=== PATIENT | female | born 1940 | race Caucasian/White ===

== ENCOUNTER → 2018-03-16 | Outpatient (CLI) | payer MEDICARE, OTHER ==
[~2018-03-16] MED LIST: HYDR25TA6 PO; LOSA25TA5 PO; METO25TA35 PO; PRAV20TA2 PO; RIVA20TA PO; Will bring list DOS
== END ==
LOC: CFH 08:53
PROVIDERS: ATTEND Family Medicine
DX: Z02.9 Encounter for administrative examinations, unspecified (principal)

== ENCOUNTER → 2018-03-23 | Outpatient (CLI) | payer MEDICARE ==
[~2018-03-23] MED LIST changes: +LIDOCAINE 1%-EPI 1:100K, 20ML ONE; +SODIUM BICARBONATE 4.2%, 5ML ONE
== END | disposition home or self-care (01) ==
LOC: CFH 07:40
PROVIDERS: ATTEND Family Medicine
DX: N63.11 Unspecified lump in the right breast, upper outer quadrant (principal)
CPT/HCPCS: 19083; 77065; 88305; J3490

== ENCOUNTER 2018-05-04 07:02 | Day surgery (SDC) | payer MEDICARE ==
[~2018-05-04] VITALS: Ht 172.7 cm; Wt 79.1 kg
[~2018-05-04 07:02] MED LIST changes: -LIDOCAINE 1%-EPI 1:100K, 20ML ONE; -SODIUM BICARBONATE 4.2%, 5ML ONE
[2018-05-04] MEDS ORDERED: LACTATED RINGERS 1,000 ML IV SCH (07:42)
[2018-05-04] MEDS ORDERED: ACETAMINOPHEN 500 MG TABLET PO ONE ×2 (08:00→08:30)
[2018-05-04] MEDS ORDERED: GABAPENTIN 300 MG CAPSULE PO ONE ×2 (08:00→08:30)
[2018-05-04] MEDS ORDERED: SCOPOLAMINE PATCH, 1.5MG PATCH.TD72 TD ONE ×2 (08:00→08:30)
[2018-05-04] MEDS ORDERED: ONDANSETRON 2MG/ML, 2ML IVPush ONE (08:00)
[2018-05-04] MEDS ORDERED: ONDANSETRON ODT 8 MG PO ONE (08:30)
[2018-05-04] MEDS ORDERED: OxyconTIN ER 10 MG TAB.ER PO ONE (08:30)
[2018-05-04] MEDS ORDERED: LIDOCAINE-MPF 1%, 2ML ONE (08:38)
[2018-05-04] MEDS ORDERED: MIDAZOLAM 1 MG/ML, 2ML ONE (08:43)
[2018-05-04] MEDS ORDERED: FENTANYL PF 250 MCG/5ML ONE (08:44)
[2018-05-04] MEDS ORDERED: ISOSULFAN BLUE 10 MG/ML, 5ML IV ONE (08:51)
[2018-05-04] MEDS ORDERED: EPINEPHRINE 1 MG/ML, 1ML ONE (08:51)
[2018-05-04] MEDS ORDERED: BUPIVACAINE/PF 0.5% ONE (08:51)
[2018-05-04] MEDS ORDERED: CEFAZOLIN 1,000 MG ONE (09:50)
[2018-05-04] MEDS ORDERED: NEOMY/POLYMYXIN B GU IRR. 1 ML IRRIG ONE (09:51)
[2018-05-04] MEDS ORDERED: BACITRACIN 50,000 UNIT ONE (09:51)
[2018-05-04] MEDS ORDERED: GENTAMICIN 80 MG/2 ML ONE (09:51)
[2018-05-04] MEDS ORDERED: OXYcodone 5 MG/5 ML ORAL.SOL UDC PO PRN (10:00)
[2018-05-04] MEDS ORDERED: EPHEDRINE 50 MG/ML, 1ML IVPush PRN (10:00)
[2018-05-04] MEDS ORDERED: DIPHENHYDRAMINE 50 MG/ML, 1ML IVPush PRN (10:00)
[2018-05-04] MEDS ORDERED: EPHEDRINE 50 MG/ML, 1ML IM PRN (10:00)
[2018-05-04] MEDS ORDERED: LABETALOL 5MG/ML, 20ML IV PRN (10:00)
[2018-05-04] MEDS ORDERED: MIDAZOLAM 1 MG/ML, 2ML IV PRN (10:00)
[2018-05-04] MEDS ORDERED: FENTANYL PF 100 MCG/2ML IV PRN (10:00)
[2018-05-04] MEDS ORDERED: PROMETHAZINE 25 MG/ML, 1ML IV PRN (10:00)
[2018-05-04] MEDS ORDERED: MORPHINE SULFATE 4 MG/ML, 1ML IVPush PRN (10:00)
[2018-05-04] MEDS ORDERED: ONDANSETRON ODT 8 MG PO PRN (10:00)
[2018-05-04] MEDS ORDERED: ESMOLOL 100 MG/10 ML ONE (10:22)
[2018-05-04] MEDS ORDERED: SUCCINYLCHOLINE 20 MG/ML, 10ML ONE (11:42)
[2018-05-04] MEDS ORDERED: ONDANSETRON 2MG/ML, 2ML ONE (11:42)
[2018-05-04] MEDS ORDERED: PROPOFOL 10 MG/ML, 20ML ONE (11:42)
[2018-05-04] MEDS ORDERED: DEXAMETHASONE 4 MG/ML, 1ML ONE (11:42)
[2018-05-04] MEDS ORDERED: METOPROLOL 1 MG/ML, 5ML ONE (12:06)
== END 2018-05-04 14:55 | disposition home or self-care (01) ==
LOC: STAR 07:02 → EDSTATUS 10:30 → OR 14:55
PROVIDERS: ATTEND Surgery
DX: C50.411 Malignant neoplasm of upper-outer quadrant of right female breast (principal); G47.30 Sleep apnea, unspecified; I10 Essential (primary) hypertension; E78.00 Pure hypercholesterolemia, unspecified; E78.5 Hyperlipidemia, unspecified; I48.2 Chronic atrial fibrillation; Z90.11 Acquired absence of right breast and nipple; Z98.890 Other specified postprocedural states; Z88.8 Allergy status to other drugs, medicaments and biological substances; Z72.89 Other problems related to lifestyle; Z79.01 Long term (current) use of anticoagulants
CPT/HCPCS: 19303; 19357; 38525; 38792; A9541; C1729; C1762; J0171; J0330; J0690; J1100; J1580; J2250; J2405; J2704; J3010; J3490; J7120; L8600; 88305; 88307; 88331; 88333

== ENCOUNTER 2018-05-06 17:35 | Inpatient (IN) | payer MEDICARE ==
[~2018-05-06] VITALS: Ht 167.6 cm; Wt 91.0 kg
[~2018-05-06 17:35] MED LIST changes: +ETOMIDATE 40 MG/20 ML ONE; +MIDAZOLAM 1 MG/ML, 5ML ONE; +PROPOFOL 10 MG/ML, 100ML IV ONE; +PROPOFOL 10 MG/ML, 20ML ONE; +SUCCINYLCHOLINE 20 MG/ML, 10ML ONE
[2018-05-06] MEDS ORDERED: PROPOFOL 100 ML IV PRN (17:46)
[2018-05-06] MEDS ORDERED: ETOMIDATE 20 MG/10 ML IVPush ONE (18:00)
[2018-05-06] MEDS ORDERED: PLEASE ENTER HEIGHT AND WEIGHT MC SCH (18:00)
[2018-05-06] MEDS ORDERED: SODIUM CHLORIDE FLUSH 10ML SYR IVF ONE (18:00)
[2018-05-06] MEDS ORDERED: SODIUM CHLORIDE 0.9% 1,000ML IVBOLUS ONE ×3 (18:00→22:00)
[2018-05-06] MEDS ORDERED: SUCCINYLCHOLINE 20 MG/ML, 10ML IVPush ONE (18:00)
[2018-05-06] MEDS ORDERED: MIDAZOLAM 1 MG/ML, 5ML IVPush ONE (18:30)
[2018-05-06 18:48] LABS: INTERNATIONAL NORMALIZED RATIO 1.87 (0.93-1.1); PROTHROMBIN TIME 19.2 Seconds (9.6-11.5)
[2018-05-06 18:52] LABS: ALBUMIN 2.7 g/dL (3.4-5.0); ANION GAP 11 mmol/L (5-15); CALCIUM 6.8 mg/dL (8.5-10.1); CHLORIDE 106 mmol/L (98-107)
[2018-05-06 18:56] LABS: ALKALINE PHOSPHATASE 41 U/L (45-117); CREATININE 4.62 mg/dL (0.55-1.02)
[2018-05-06 18:58] LABS: MEAN CORPUSCULAR HEMOGLOBIN 32.1 pg (27.0-34.8); MEAN CORPUSCULAR HGB CONC 33.1 g/dL (32.4-35.8); MEAN CORPUSCULAR VOLUME 97.2 fL (80-100); PLATELET COUNT 67 x10^3/uL (130-400); RED BLOOD COUNT 3.74 x10^6/uL (3.82-5.3); RED CELL DISTRIBUTION WIDTH 13.4 % (9.6-15.2)
[2018-05-06 18:59] LABS: MD YES
[2018-05-06 19:01] LABS: BAND#(MANUAL) 0.92 x10^3/uL; BANDS%(MANUAL) 6 % (0-7); LYMPH#(MANUAL) 0.77 x10^3/uL (1-3.4); LYMPHS% (MANUAL) 5 % (22-44); MONOS#(MANUAL) 0.61 x10^3/uL (0.3-2.7); MONOS% (MANUAL) 4 % (2-9); NRBC % (MANUAL) 1 % (0-1); SEG#(MANUAL) 13.01 x10^3/uL (1.8-6.8); SEGS% (MANUAL) 85 % (42-75)
[2018-05-06 19:02] LABS: CULTURE INDICATED? YES; MICROSCOPIC INDICATED
[2018-05-06 19:02] LABS: <PLATELET ESTIMATE> DECREASED; POLYCHROMASIA 1+
[2018-05-06 19:05] LABS: LARGE PLATELETS 1+
[2018-05-06 19:08] LABS: ALANINE AMINOTRANSFERASE 2791 U/L (12-78)
[2018-05-06 19:16] LABS: TROPONIN I 0.879 ng/mL (0.000-0.045)
[2018-05-06] MEDS ORDERED: ONDA4TAB12 PO (19:47)
[2018-05-06] MEDS ORDERED: HYDR-882 PO (19:47)
[2018-05-06] MEDS ORDERED: CEPH-376 PO (19:47)
[2018-05-06] MEDS ORDERED: HEPARIN 5,000 UNITS/ML, 1ML SQ SCH (20:00)
[2018-05-06] MEDS ORDERED: CEFOTETAN PMX 2GM/50ML 50 ML IV ONE (20:00)
[2018-05-06] MEDS ORDERED: SODIUM CHLORIDE 0.9% 1,000 ML IV ONE (20:00)
[2018-05-06] MEDS ORDERED: ONDANSETRON 2MG/ML, 2ML IVPush PRN (20:00)
[2018-05-06] MEDS ORDERED: hydrALAzine 20 MG/ML, 1ML IVPush PRN (20:00)
[2018-05-06 21:49] LABS: PLATELET (DIC) 64 x10^3/uL (130-400)
[2018-05-06 21:57] LABS: ANION GAP 11 mmol/L (5-15); CALCIUM 7.3 mg/dL (8.5-10.1); CHLORIDE 103 mmol/L (98-107)
[2018-05-06 22:00] VITALS: BP 106/76
[2018-05-06] MEDS ORDERED: PHARMACY MAY ADJ FOR RENAL FX MC SCH (22:00)
[2018-05-06] MEDS ORDERED: BISACODYL 10 MG SUPP PR PRN (22:00)
[2018-05-06] MEDS ORDERED: LACTULOSE 20 GM/30 ML UDC NG PRN (22:00)
[2018-05-06] MEDS: ALBUTEROL/IPRATROPIUM 2.5MG/0.5MG, 3 ML INLINE SCH (22:00)
[2018-05-06] MEDS ORDERED: SENNOSIDES 8.8 MG/5 ML ORAL SOL NG PRN (22:00)
[2018-05-06] MEDS ORDERED: LIDOCAINE-MPF 1%, 2ML ENDO PRN (22:00)
[2018-05-06] MEDS ORDERED: SENNA/DOCUSATE TABLET NG PRN (22:00)
[2018-05-06 22:15] LABS: D-DIMER (DIC) 27.81 ug/mlFEU (0.00-0.52); FIBRINOGEN 177 mg/dL (200-340); PROTIME 17.7 Seconds (9.6-11.5); PTT 28 Seconds (25-31)
[2018-05-06 22:19] LABS: HIT RESULT NEGATIVE (NEGATIVE)
[2018-05-06] MEDS: PIPERACILLIN/TAZO/PMX 2.25GM 50 ML IV SCH (22:24)
[2018-05-06] MEDS: METOPROLOL TARTRATE 25 MG TABLET PO SCH (22:56)
[2018-05-07] MEDS: ALBUTEROL/IPRATROPIUM 2.5MG/0.5MG, 3 ML INLINE SCH ×5 (02:00→22:50)
[2018-05-07] MEDS: SODIUM CHLORIDE 0.9% 1,000 ML IV SCH ×7 (02:21→15:12)
[2018-05-07] MEDS: FENTANYL PF 100 MCG/2ML IVPush PRN ×3 (03:26→11:09)
[2018-05-07 04:36] LABS: MEAN CORPUSCULAR HEMOGLOBIN 32.1 pg (27.0-34.8); MEAN CORPUSCULAR HGB CONC 33.1 g/dL (32.4-35.8); MEAN CORPUSCULAR VOLUME 96.8 fL (80-100); RED BLOOD COUNT 3.99 x10^6/uL (3.82-5.3); RED CELL DISTRIBUTION WIDTH 13.1 % (9.6-15.2)
[2018-05-07 04:44] LABS: ALBUMIN 2.7 g/dL (3.4-5.0); ANION GAP 8 mmol/L (5-15); CALCIUM 6.9 mg/dL (8.5-10.1); CHLORIDE 109 mmol/L (98-107); CREATININE 3.34 mg/dL (0.55-1.02)
[2018-05-07 04:45] LABS: TROPONIN I 0.777 ng/mL (0.000-0.045)
[2018-05-07 05:07] LABS: ALANINE AMINOTRANSFERASE 3395 U/L (12-78); ALKALINE PHOSPHATASE 45 U/L (45-117); TOTAL PROTEIN 5.2 g/dL (6.4-8.2)
[2018-05-07] MEDS: PIPERACILLIN/TAZO/PMX 2.25GM 50 ML IV SCH ×3 (05:36→21:30)
[2018-05-07] MEDS: METOPROLOL TARTRATE 25 MG TABLET PO SCH ×3 (05:36→21:30)
[2018-05-07 05:37] LABS: MD YES
[2018-05-07 05:38] LABS: MEAN PLATELET VOLUME 9.3 fL (7.4-10.4); PLATELET COUNT 63 x10^3/uL (130-400)
[2018-05-07 05:40] LABS: BAND#(MANUAL) 0.31 x10^3/uL; BANDS%(MANUAL) 2 % (0-7); LYMPH#(MANUAL) 0.62 x10^3/uL (1-3.4); LYMPHS% (MANUAL) 4 % (22-44); MONOS#(MANUAL) 0.46 x10^3/uL (0.3-2.7); MONOS% (MANUAL) 3 % (2-9); NRBC % (MANUAL) 1 % (0-1); SEG#(MANUAL) 14.01 x10^3/uL (1.8-6.8); SEGS% (MANUAL) 91 % (42-75)
[2018-05-07 05:41] LABS: <PLATELET ESTIMATE> DECREASED; POLYCHROMASIA 1+
[2018-05-07 05:42] LABS: <PLT MORPHOLOGY> NORMAL PLT MORPH
[2018-05-07] MEDS: PANTOPRAZOLE 40 MG IV IV SCH (09:32)
[2018-05-07] MEDS: OXYcodone IR 5MG TABLET PO PRN ×2 (14:47→20:39)
[2018-05-07] MEDS: METOPROLOL 1 MG/ML, 5ML IVPush PRN (15:12)
[2018-05-07] MEDS ORDERED: SODIUM CHLORIDE 0.9% 1,000ML IVBOLUS ONE (15:30)
[2018-05-07 15:46] LABS: INTERNATIONAL NORMALIZED RATIO 1.53 (0.93-1.1); PROTHROMBIN TIME 15.8 Seconds (9.6-11.5)
[2018-05-08] MEDS: SODIUM CHLORIDE 0.9% 1,000 ML IV SCH ×4 (00:15→22:22)
[2018-05-08] MEDS: ALBUTEROL/IPRATROPIUM 2.5MG/0.5MG, 3 ML INLINE SCH ×6 (02:47→22:00)
[2018-05-08] MEDS: PROPOFOL 100 ML IV PRN ×2 (03:21→12:54)
[2018-05-08 04:43] LABS: ALBUMIN 2.4 g/dL (3.4-5.0); ANION GAP 7 mmol/L (5-15); CALCIUM 7.4 mg/dL (8.5-10.1); CHLORIDE 113 mmol/L (98-107)
[2018-05-08] MEDS: METOPROLOL TARTRATE 25 MG TABLET PO SCH ×3 (04:52→22:22)
[2018-05-08] MEDS: OXYcodone IR 5MG TABLET PO PRN (04:52)
[2018-05-08] MEDS: PIPERACILLIN/TAZO/PMX 2.25GM 50 ML IV SCH (04:53)
[2018-05-08 04:54] LABS: ALANINE AMINOTRANSFERASE 2113 U/L (12-78); ALKALINE PHOSPHATASE 46 U/L (45-117); BILIRUBIN,TOTAL 0.9 mg/dL (0.2-1.0); CREATININE 1.35 mg/dL (0.55-1.02); TOTAL PROTEIN 4.8 g/dL (6.4-8.2)
[2018-05-08 04:58] LABS: MEAN CORPUSCULAR HEMOGLOBIN 31.7 pg (27.0-34.8); MEAN CORPUSCULAR HGB CONC 33.1 g/dL (32.4-35.8); MEAN CORPUSCULAR VOLUME 95.7 fL (80-100); RED BLOOD COUNT 3.79 x10^6/uL (3.82-5.3); RED CELL DISTRIBUTION WIDTH 13.4 % (9.6-15.2)
[2018-05-08 05:27] LABS: BASOPHILS # (AUTO) 0.02 x10^3/uL (0-0.1); BASOPHILS % (AUTO) 0 % (0-1); EOSINOPHILS # (AUTO) 0.01 x10^3/uL (0-0.4); EOSINOPHILS % (AUTO) 0 % (1-7); LYMPHOCYTES # (AUTO) 1.03 x10^3/uL (1-3.4); LYMPHOCYTES % (AUTO) 9 % (22-44); MD SCAN; MEAN PLATELET VOLUME 9.1 fL (7.4-10.4); MONOCYTES # (AUTO) 0.69 x10^3/uL (0.2-0.8); MONOCYTES % (AUTO) 6 % (2-9); NEUTROPHILS # (AUTO) 10.36 x10^3/uL (1.8-6.8); NEUTROPHILS % (AUTO) 86 % (42-75); PLATELET COUNT 61 x10^3/uL (130-400)
[2018-05-08] MEDS: PANTOPRAZOLE 40 MG IV IV SCH (10:09)
[2018-05-08] MEDS: FENTANYL PF 100 MCG/2ML IVPush PRN ×2 (11:14→19:44)
[2018-05-08] MEDS ORDERED: DIGOXIN 0.25 MG/ML, 2ML IVPush ONE (11:30)
[2018-05-08] MEDS: PIPERACILLIN/TAZO/PMX 3.375GM 50 ML IV SCH ×2 (12:24→20:35)
[2018-05-09] MEDS: PIPERACILLIN/TAZO/PMX 3.375GM 50 ML IV SCH ×2 (01:51→08:49)
[2018-05-09] MEDS: PROPOFOL 100 ML IV PRN (01:52)
[2018-05-09] MEDS: ALBUTEROL/IPRATROPIUM 2.5MG/0.5MG, 3 ML INLINE SCH ×6 (02:00→22:00)
[2018-05-09] MEDS: METOPROLOL TARTRATE 25 MG TABLET PO SCH ×3 (04:56→22:38)
[2018-05-09] MEDS: SODIUM CHLORIDE 0.9% 1,000 ML IV SCH ×3 (04:56→20:07)
[2018-05-09 04:57] LABS: ANION GAP 5 mmol/L (5-15); CALCIUM 7.4 mg/dL (8.5-10.1); CHLORIDE 114 mmol/L (98-107); CREATININE 0.74 mg/dL (0.55-1.02); TRIGLYCERIDES 60 mg/dL (50-200)
[2018-05-09 04:59] LABS: MEAN CORPUSCULAR HEMOGLOBIN 31.8 pg (27.0-34.8); MEAN CORPUSCULAR HGB CONC 33.2 g/dL (32.4-35.8); MEAN CORPUSCULAR VOLUME 95.8 fL (80-100); RED BLOOD COUNT 3.59 x10^6/uL (3.82-5.3); RED CELL DISTRIBUTION WIDTH 13.5 % (9.6-15.2)
[2018-05-09 05:44] LABS: MEAN PLATELET VOLUME 9.8 fL (7.4-10.4)
[2018-05-09 05:45] LABS: MD YES; PLATELET COUNT 47 x10^3/uL (130-400)
[2018-05-09 05:47] LABS: BAND#(MANUAL) 0.12 x10^3/uL; BANDS%(MANUAL) 1 % (0-7); EOS#(MANUAL) 0.12 x10^3/uL (0.0-0.4); EOS% (MANUAL) 1 % (1-7); LYMPH#(MANUAL) 0.83 x10^3/uL (1-3.4); LYMPHS% (MANUAL) 7 % (22-44); NRBC % (MANUAL) 4 % (0-1)
[2018-05-09 05:48] LABS: MONOS% (MANUAL) 5 % (2-9); POLYCHROMASIA 1+; SEG#(MANUAL) 10.23 x10^3/uL (1.8-6.8); SEGS% (MANUAL) 86 % (42-75)
[2018-05-09 05:49] LABS: <PLATELET ESTIMATE> DECREASED; <PLT MORPHOLOGY> NORMAL PLT MORPH
[2018-05-09] MEDS: PANTOPRAZOLE 40 MG IV IV SCH (08:45)
[2018-05-09] MEDS: FENTANYL PF 100 MCG/2ML IVPush PRN ×3 (08:45→18:24)
[2018-05-09 09:04] LABS: ALBUMIN 2.2 g/dL (3.4-5.0)
[2018-05-09 09:10] LABS: ALANINE AMINOTRANSFERASE 1388 U/L (12-78); ALKALINE PHOSPHATASE 72 U/L (45-117); BILIRUBIN,TOTAL 0.9 mg/dL (0.2-1.0); TOTAL PROTEIN 4.6 g/dL (6.4-8.2)
[2018-05-09] MEDS: METOPROLOL 1 MG/ML, 5ML IVPush PRN (13:32)
[2018-05-09] MEDS: AMPICILLIN/SULBACTAM 3 GM in SODIUM CHLORIDE 0.9% 100 ML IV SCH ×2 (14:56→22:38)
[2018-05-09] MEDS ORDERED: MORPHINE SULFATE 4 MG/ML, 1ML ONE (21:39)
[2018-05-09] MEDS: morphine SULFATE 10 MG/ML, 1ML IVPush PRN (21:42)
[2018-05-10] MEDS: ALBUTEROL/IPRATROPIUM 2.5MG/0.5MG, 3 ML INLINE SCH (02:00)
[2018-05-10] MEDS: morphine SULFATE 10 MG/ML, 1ML IVPush PRN ×2 (02:43→05:29)
[2018-05-10] MEDS: SODIUM CHLORIDE 0.9% 1,000 ML IV SCH (03:49)
[2018-05-10 04:12] VITALS: BP 138/88
[2018-05-10 04:37] LABS: MEAN CORPUSCULAR HEMOGLOBIN 31.7 pg (27.0-34.8); MEAN CORPUSCULAR HGB CONC 32.7 g/dL (32.4-35.8); MEAN CORPUSCULAR VOLUME 96.9 fL (80-100); MEAN PLATELET VOLUME 9.8 fL (7.4-10.4); RED BLOOD COUNT 3.66 x10^6/uL (3.82-5.3); RED CELL DISTRIBUTION WIDTH 13.3 % (9.6-15.2)
[2018-05-10 04:42] LABS: PLATELET COUNT 47 x10^3/uL (130-400)
[2018-05-10 04:44] LABS: ALBUMIN 2.1 g/dL (3.4-5.0); ANION GAP 4 mmol/L (5-15); CALCIUM 7.2 mg/dL (8.5-10.1); CHLORIDE 117 mmol/L (98-107); CREATININE 0.52 mg/dL (0.55-1.02)
[2018-05-10 04:53] LABS: ALANINE AMINOTRANSFERASE 974 U/L (12-78); ALKALINE PHOSPHATASE 75 U/L (45-117); BILIRUBIN,TOTAL 1.1 mg/dL (0.2-1.0); TOTAL PROTEIN 4.7 g/dL (6.4-8.2)
[2018-05-10 05:23] LABS: BASOPHILS # (AUTO) 0.05 x10^3/uL (0-0.1); BASOPHILS % (AUTO) 0 % (0-1); EOSINOPHILS # (AUTO) 0.04 x10^3/uL (0-0.4); EOSINOPHILS % (AUTO) 0 % (1-7); LYMPHOCYTES # (AUTO) 0.94 x10^3/uL (1-3.4); LYMPHOCYTES % (AUTO) 8 % (22-44); MD SCAN; MONOCYTES # (AUTO) 0.98 x10^3/uL (0.2-0.8); MONOCYTES % (AUTO) 8 % (2-9); NEUTROPHILS # (AUTO) 9.75 x10^3/uL (1.8-6.8); NEUTROPHILS % (AUTO) 83 % (42-75)
[2018-05-10] MEDS: AMPICILLIN/SULBACTAM 3 GM in SODIUM CHLORIDE 0.9% 100 ML IV SCH ×3 (05:29→21:32)
[2018-05-10] MEDS: METOPROLOL TARTRATE 25 MG TABLET PO SCH ×3 (05:32→21:32)
[2018-05-10] MEDS ORDERED: SODIUM PHOSPHATE 20 MMOL in SODIUM CHLORIDE 0.9% 500 ML IV ONE (07:00)
[2018-05-10] MEDS: PANTOPRAZOLE 40 MG IV IV SCH (08:36)
[2018-05-10] MEDS ORDERED: SODIUM CHLORIDE 0.9% 1,000 ML IV SCH (19:54)
[2018-05-11 04:20] LABS: MEAN CORPUSCULAR HEMOGLOBIN 32.1 pg (27.0-34.8); MEAN CORPUSCULAR VOLUME 97.3 fL (80-100); MEAN PLATELET VOLUME 9.3 fL (7.4-10.4); PLATELET COUNT 57 x10^3/uL (130-400); RED BLOOD COUNT 3.66 x10^6/uL (3.82-5.3); RED CELL DISTRIBUTION WIDTH 13.7 % (9.6-15.2)
[2018-05-11 04:31] LABS: MD YES
[2018-05-11 04:33] LABS: <PLATELET ESTIMATE> DECREASED; ALANINE AMINOTRANSFERASE 726 U/L (12-78); ANION GAP 3 mmol/L (5-15); BAND#(MANUAL) 0.24 x10^3/uL; BANDS%(MANUAL) 2 % (0-7); CALCIUM 7.7 mg/dL (8.5-10.1); CHLORIDE 115 mmol/L (98-107); CREATININE 0.54 mg/dL (0.55-1.02); EOS#(MANUAL) 0.24 x10^3/uL (0.0-0.4); EOS% (MANUAL) 2 % (1-7); LYMPH#(MANUAL) 1.21 x10^3/uL (1-3.4); LYMPHS% (MANUAL) 10 % (22-44); MONOS#(MANUAL) 1.09 x10^3/uL (0.3-2.7); MONOS% (MANUAL) 9 % (2-9); NRBC % (MANUAL) 1 % (0-1); POLYCHROMASIA 1+; SEG#(MANUAL) 9.32 x10^3/uL (1.8-6.8); SEGS% (MANUAL) 77 % (42-75)
[2018-05-11 04:34] LABS: LARGE PLATELETS 1+
[2018-05-11 04:35] LABS: ALKALINE PHOSPHATASE 90 U/L (45-117); BILIRUBIN,TOTAL 1.3 mg/dL (0.2-1.0); TOTAL PROTEIN 4.9 g/dL (6.4-8.2)
[2018-05-11] MEDS: METOPROLOL TARTRATE 25 MG TABLET PO SCH ×3 (05:39→21:44)
[2018-05-11] MEDS: AMPICILLIN/SULBACTAM 3 GM in SODIUM CHLORIDE 0.9% 100 ML IV SCH ×3 (06:30→21:44)
[2018-05-11 06:39] VITALS: BP 162/90
[2018-05-11] MEDS: PANTOPRAZOLE 40 MG IV IV SCH (08:24)
[2018-05-11] MEDS ORDERED: FUROSEMIDE 20 MG/2 ML IV ONE (09:00)
[2018-05-11] MEDS ORDERED: ALBUMIN HUMAN 25% 100 ML IV ONE (09:00)
[2018-05-11] MEDS: OXYcodone IR 5MG TABLET PO PRN ×2 (11:51→18:34)
[2018-05-12 04:24] LABS: MEAN CORPUSCULAR HGB CONC 32.4 g/dL (32.4-35.8); MEAN CORPUSCULAR VOLUME 95.6 fL (80-100); MEAN PLATELET VOLUME 9.6 fL (7.4-10.4); PLATELET COUNT 67 x10^3/uL (130-400); RED BLOOD COUNT 3.53 x10^6/uL (3.82-5.3); RED CELL DISTRIBUTION WIDTH 13.7 % (9.6-15.2)
[2018-05-12 05:40] LABS: ALANINE AMINOTRANSFERASE 483 U/L (12-78); ALBUMIN 2.2 g/dL (3.4-5.0); ANION GAP 8 mmol/L (5-15); CHLORIDE 111 mmol/L (98-107); CREATININE 0.59 mg/dL (0.55-1.02)
[2018-05-12 05:42] LABS: ALKALINE PHOSPHATASE 94 U/L (45-117); BILIRUBIN,TOTAL 1.5 mg/dL (0.2-1.0); TOTAL PROTEIN 5.1 g/dL (6.4-8.2)
[2018-05-12 06:07] LABS: BASOPHILS # (AUTO) 0.04 x10^3/uL (0-0.1); BASOPHILS % (AUTO) 0 % (0-1); EOSINOPHILS # (AUTO) 0.14 x10^3/uL (0-0.4); EOSINOPHILS % (AUTO) 1 % (1-7); LYMPHOCYTES # (AUTO) 1.36 x10^3/uL (1-3.4); LYMPHOCYTES % (AUTO) 12 % (22-44); MD SCAN; MONOCYTES # (AUTO) 1.27 x10^3/uL (0.2-0.8); MONOCYTES % (AUTO) 11 % (2-9); NEUTROPHILS # (AUTO) 8.59 x10^3/uL (1.8-6.8); NEUTROPHILS % (AUTO) 75 % (42-75)
[2018-05-12] MEDS: METOPROLOL TARTRATE 25 MG TABLET PO SCH ×3 (06:12→22:22)
[2018-05-12] MEDS: AMPICILLIN/SULBACTAM 3 GM in SODIUM CHLORIDE 0.9% 100 ML IV SCH ×3 (06:12→22:22)
[2018-05-12] MEDS ORDERED: ALBUMIN HUMAN 25% 100 ML IV ONE (09:30)
[2018-05-12] MEDS: PANTOPRAZOLE 40 MG IV IV SCH (09:40)
[2018-05-12] MEDS ORDERED: FUROSEMIDE 20 MG/2 ML IV ONE (11:00)
[2018-05-12 18:26] VITALS: BP 131/76
[2018-05-12] MEDS: OXYcodone IR 5MG TABLET PO PRN (20:51)
[2018-05-13 00:16] VITALS: BP 126/82
[2018-05-13] MEDS ORDERED: ALBUTEROL SULFATE 2.5 MG/3 ML ONE (03:07)
[2018-05-13 04:29] VITALS: BP 149/86
[2018-05-13 04:45] LABS: MEAN CORPUSCULAR HEMOGLOBIN 32.3 pg (27.0-34.8); MEAN CORPUSCULAR HGB CONC 33.5 g/dL (32.4-35.8); MEAN CORPUSCULAR VOLUME 96.2 fL (80-100); MEAN PLATELET VOLUME 9.4 fL (7.4-10.4); PLATELET COUNT 80 x10^3/uL (130-400); RED BLOOD COUNT 3.37 x10^6/uL (3.82-5.3); RED CELL DISTRIBUTION WIDTH 13.7 % (9.6-15.2)
[2018-05-13 04:51] LABS: ALANINE AMINOTRANSFERASE 353 U/L (12-78); ALBUMIN 2.4 g/dL (3.4-5.0); ANION GAP 5 mmol/L (5-15); CALCIUM 8.2 mg/dL (8.5-10.1); CHLORIDE 107 mmol/L (98-107)
[2018-05-13 04:53] LABS: ALKALINE PHOSPHATASE 93 U/L (45-117); BILIRUBIN,TOTAL 1.6 mg/dL (0.2-1.0)
[2018-05-13 05:50] LABS: BASOPHILS # (AUTO) 0.02 x10^3/uL (0-0.1); BASOPHILS % (AUTO) 0 % (0-1); EOSINOPHILS # (AUTO) 0.15 x10^3/uL (0-0.4); EOSINOPHILS % (AUTO) 1 % (1-7); LYMPHOCYTES # (AUTO) 1.35 x10^3/uL (1-3.4); LYMPHOCYTES % (AUTO) 12 % (22-44); MD SCAN; MONOCYTES # (AUTO) 1.18 x10^3/uL (0.2-0.8); MONOCYTES % (AUTO) 10 % (2-9); NEUTROPHILS # (AUTO) 8.74 x10^3/uL (1.8-6.8); NEUTROPHILS % (AUTO) 76 % (42-75)
[2018-05-13] MEDS: METOPROLOL TARTRATE 25 MG TABLET PO SCH ×3 (06:25→21:53)
[2018-05-13] MEDS: AMPICILLIN/SULBACTAM 3 GM in SODIUM CHLORIDE 0.9% 100 ML IV SCH ×3 (06:25→21:53)
[2018-05-13] MEDS: ALBUTEROL SULFATE 2.5 MG/3 ML NPPB SCH ×4 (07:05→19:40)
[2018-05-13 07:35] VITALS: BP 135/82
[2018-05-13] MEDS: PANTOPRAZOLE 40 MG IV IV SCH (08:48)
[2018-05-13] MEDS ORDERED: ALBUMIN HUMAN 25% 100 ML IV ONE (13:00)
[2018-05-13] MEDS ORDERED: POTASSIUM CHLORIDE 20 MEQ TAB.ER.PRT PO ONE (13:00)
[2018-05-13] MEDS ORDERED: FUROSEMIDE 40 MG/4 ML IV ONE (13:30)
[2018-05-13 14:03] VITALS: BP 133/90
[2018-05-13 18:30] VITALS: BP 137/82
[2018-05-13] MEDS: OXYcodone IR 5MG TABLET PO PRN (21:59)
[2018-05-14 02:37] VITALS: BP 143/86
[2018-05-14 05:05] LABS: MEAN CORPUSCULAR HEMOGLOBIN 31.7 pg (27.0-34.8); MEAN CORPUSCULAR HGB CONC 33.3 g/dL (32.4-35.8); MEAN CORPUSCULAR VOLUME 95.1 fL (80-100); RED BLOOD COUNT 3.25 x10^6/uL (3.82-5.3); RED CELL DISTRIBUTION WIDTH 13.9 % (9.6-15.2)
[2018-05-14 05:08] LABS: ALBUMIN 2.4 g/dL (3.4-5.0); CHLORIDE 102 mmol/L (98-107)
[2018-05-14 05:13] LABS: ALANINE AMINOTRANSFERASE 261 U/L (12-78); ALKALINE PHOSPHATASE 85 U/L (45-117); ANION GAP 5 mmol/L (5-15); BILIRUBIN,TOTAL 1.7 mg/dL (0.2-1.0); CREATININE 0.59 mg/dL (0.55-1.02); TOTAL PROTEIN 5.1 g/dL (6.4-8.2)
[2018-05-14] MEDS: METOPROLOL TARTRATE 25 MG TABLET PO SCH ×3 (05:50→21:53)
[2018-05-14] MEDS: AMPICILLIN/SULBACTAM 3 GM in SODIUM CHLORIDE 0.9% 100 ML IV SCH ×3 (05:50→21:54)
[2018-05-14 05:59] LABS: BASOPHILS # (AUTO) 0.04 x10^3/uL (0-0.1); BASOPHILS % (AUTO) 0 % (0-1); EOSINOPHILS # (AUTO) 0.13 x10^3/uL (0-0.4); EOSINOPHILS % (AUTO) 1 % (1-7); LYMPHOCYTES # (AUTO) 0.99 x10^3/uL (1-3.4); LYMPHOCYTES % (AUTO) 9 % (22-44); MD SCAN; MEAN PLATELET VOLUME 9.4 fL (7.4-10.4); MONOCYTES # (AUTO) 1.19 x10^3/uL (0.2-0.8); MONOCYTES % (AUTO) 11 % (2-9); NEUTROPHILS # (AUTO) 8.91 x10^3/uL (1.8-6.8); NEUTROPHILS % (AUTO) 79 % (42-75); PLATELET COUNT 98 x10^3/uL (130-400)
[2018-05-14 07:11] VITALS: BP 152/101
[2018-05-14] MEDS: PANTOPRAZOLE 40 MG IV IV SCH (07:39)
[2018-05-14] MEDS: ALBUTEROL SULFATE 2.5 MG/3 ML NPPB SCH ×4 (08:20→19:35)
[2018-05-14 13:50] VITALS: BP 161/102
[2018-05-14 14:01] VITALS: BP 142/92
[2018-05-14] MEDS: HYDROmorphone 2MG TABLET PO PRN ×2 (14:08→21:58)
[2018-05-14 20:06] VITALS: BP 136/78
[2018-05-15 02:07] VITALS: BP 128/86
[2018-05-15 05:04] LABS: BASOPHILS # (AUTO) 0.02 x10^3/uL (0-0.1); BASOPHILS % (AUTO) 0 % (0-1); EOSINOPHILS # (AUTO) 0.16 x10^3/uL (0-0.4); EOSINOPHILS % (AUTO) 1 % (1-7); LYMPHOCYTES # (AUTO) 1.08 x10^3/uL (1-3.4); LYMPHOCYTES % (AUTO) 10 % (22-44); MD NO; MEAN CORPUSCULAR HEMOGLOBIN 31.3 pg (27.0-34.8); MEAN CORPUSCULAR VOLUME 94.9 fL (80-100); MONOCYTES % (AUTO) 10 % (2-9); NEUTROPHILS # (AUTO) 8.99 x10^3/uL (1.8-6.8); NEUTROPHILS % (AUTO) 79 % (42-75); PLATELET COUNT 132 x10^3/uL (130-400); RED BLOOD COUNT 3.26 x10^6/uL (3.82-5.3)
[2018-05-15 05:09] LABS: ANION GAP 5 mmol/L (5-15); CALCIUM 8.1 mg/dL (8.5-10.1); CHLORIDE 101 mmol/L (98-107)
[2018-05-15 05:10] LABS: CREATININE 0.62 mg/dL (0.55-1.02)
[2018-05-15] MEDS: AMPICILLIN/SULBACTAM 3 GM in SODIUM CHLORIDE 0.9% 100 ML IV SCH ×3 (06:38→21:08)
[2018-05-15] MEDS: METOPROLOL TARTRATE 25 MG TABLET PO SCH ×3 (06:38→21:08)
[2018-05-15 07:00] VITALS: BP 168/94
[2018-05-15] MEDS: ALBUTEROL SULFATE 2.5 MG/3 ML NPPB SCH ×4 (07:00→20:35)
[2018-05-15] MEDS ORDERED: POTASSIUM CHLORIDE 20 MEQ TAB.ER.PRT PO ONE (08:00)
[2018-05-15 12:30] VITALS: BP 137/83
[2018-05-15 13:24] VITALS: BP 148/85
[2018-05-15 14:17] VITALS: BP 131/87
[2018-05-15 18:38] VITALS: BP 131/90
[2018-05-15] MEDS: RIVAROXABAN 20 MG TABLET PO SCH (21:08)
[2018-05-16 00:55] VITALS: BP 148/90
[2018-05-16 04:57] LABS: CLOSTRIDIUM DIFFICILE ANTIGEN NEGATIVE; CLOSTRIDIUM DIFFICILE TOXIN NEGATIVE (Negative)
[2018-05-16 05:41] LABS: BASOPHILS # (AUTO) 0.01 x10^3/uL (0-0.1); BASOPHILS % (AUTO) 0 % (0-1); EOSINOPHILS # (AUTO) 0.09 x10^3/uL (0-0.4); EOSINOPHILS % (AUTO) 1 % (1-7); LYMPHOCYTES # (AUTO) 0.86 x10^3/uL (1-3.4); LYMPHOCYTES % (AUTO) 8 % (22-44); MD NO; MEAN CORPUSCULAR HEMOGLOBIN 31.4 pg (27.0-34.8); MEAN CORPUSCULAR HGB CONC 33.2 g/dL (32.4-35.8); MEAN CORPUSCULAR VOLUME 94.6 fL (80-100); MONOCYTES # (AUTO) 0.97 x10^3/uL (0.2-0.8); MONOCYTES % (AUTO) 9 % (2-9); NEUTROPHILS % (AUTO) 83 % (42-75); PLATELET COUNT 169 x10^3/uL (130-400); RED BLOOD COUNT 3.33 x10^6/uL (3.82-5.3); RED CELL DISTRIBUTION WIDTH 13.7 % (9.6-15.2)
[2018-05-16 05:43] LABS: ANION GAP 6 mmol/L (5-15); CALCIUM 8.4 mg/dL (8.5-10.1); CHLORIDE 103 mmol/L (98-107); CREATININE 0.53 mg/dL (0.55-1.02)
[2018-05-16 06:15] VITALS: BP 149/86
[2018-05-16] MEDS: AMPICILLIN/SULBACTAM 3 GM in SODIUM CHLORIDE 0.9% 100 ML IV SCH ×3 (06:18→20:59)
[2018-05-16] MEDS: METOPROLOL TARTRATE 25 MG TABLET PO SCH (06:18)
[2018-05-16] MEDS: ALBUTEROL SULFATE 2.5 MG/3 ML NPPB SCH ×4 (07:00→20:10)
[2018-05-16] MEDS ORDERED: METOPROLOL TARTRATE 25 MG TABLET PO ONE (08:30)
[2018-05-16 08:45] VITALS: BP 152/91
[2018-05-16 14:21] VITALS: BP 138/73
[2018-05-16] MEDS: METOPROLOL TARTRATE 50 MG TABLET PO SCH ×2 (14:26→20:59)
[2018-05-16] MEDS ORDERED: DIGOXIN 0.25 MG/ML, 2ML IVPush ONE (18:00)
[2018-05-16 19:03] VITALS: BP 148/96
[2018-05-16] MEDS ORDERED: DIPHENHYDRAMINE 25 MG CAPSULE PO PRN (20:30)
[2018-05-16] MEDS: RIVAROXABAN 20 MG TABLET PO SCH (20:59)
[2018-05-17 02:05] VITALS: BP 137/76
[2018-05-17 05:25] VITALS: BP 146/94
[2018-05-17] MEDS: METOPROLOL TARTRATE 50 MG TABLET PO SCH ×3 (05:27→18:20)
[2018-05-17] MEDS: AMPICILLIN/SULBACTAM 3 GM in SODIUM CHLORIDE 0.9% 100 ML IV SCH ×3 (05:27→22:07)
[2018-05-17 05:35] LABS: BASOPHILS # (AUTO) 0.01 x10^3/uL (0-0.1); BASOPHILS % (AUTO) 0 % (0-1); EOSINOPHILS % (AUTO) 2 % (1-7); LYMPHOCYTES # (AUTO) 0.95 x10^3/uL (1-3.4); LYMPHOCYTES % (AUTO) 8 % (22-44); MD NO; MEAN CORPUSCULAR HEMOGLOBIN 31.3 pg (27.0-34.8); MEAN CORPUSCULAR HGB CONC 32.8 g/dL (32.4-35.8); MEAN CORPUSCULAR VOLUME 95.6 fL (80-100); MEAN PLATELET VOLUME 8.5 fL (7.4-10.4); MONOCYTES # (AUTO) 0.94 x10^3/uL (0.2-0.8); MONOCYTES % (AUTO) 8 % (2-9); NEUTROPHILS # (AUTO) 10.11 x10^3/uL (1.8-6.8); NEUTROPHILS % (AUTO) 82 % (42-75); PLATELET COUNT 216 x10^3/uL (130-400); RED BLOOD COUNT 3.39 x10^6/uL (3.82-5.3); RED CELL DISTRIBUTION WIDTH 14.1 % (9.6-15.2)
[2018-05-17 05:53] LABS: ANION GAP 7 mmol/L (5-15); CALCIUM 8.2 mg/dL (8.5-10.1); CHLORIDE 103 mmol/L (98-107); CREATININE 0.67 mg/dL (0.55-1.02)
[2018-05-17] MEDS: ALBUTEROL SULFATE 2.5 MG/3 ML NPPB SCH ×4 (07:30→18:42)
[2018-05-17 08:13] VITALS: BP 146/94
[2018-05-17] MEDS: DIGOXIN 0.25 MG TABLET PO SCH (08:29)
[2018-05-17 13:32] VITALS: BP 126/84
[2018-05-17 18:26] VITALS: BP 127/75
[2018-05-17] MEDS: RIVAROXABAN 20 MG TABLET PO SCH (20:09)
[2018-05-18] MEDS: METOPROLOL TARTRATE 50 MG TABLET PO SCH ×3 (00:03→12:36)
[2018-05-18 01:24] VITALS: BP 138/84
[2018-05-18 05:21] LABS: ANION GAP 5 mmol/L (5-15); CALCIUM 8.3 mg/dL (8.5-10.1); CHLORIDE 105 mmol/L (98-107)
[2018-05-18 05:25] LABS: BASOPHILS # (AUTO) 0.02 x10^3/uL (0-0.1); BASOPHILS % (AUTO) 0 % (0-1); EOSINOPHILS # (AUTO) 0.15 x10^3/uL (0-0.4); EOSINOPHILS % (AUTO) 2 % (1-7); LYMPHOCYTES # (AUTO) 1.14 x10^3/uL (1-3.4); LYMPHOCYTES % (AUTO) 12 % (22-44); MD NO; MEAN CORPUSCULAR HEMOGLOBIN 31.3 pg (27.0-34.8); MEAN CORPUSCULAR HGB CONC 33.1 g/dL (32.4-35.8); MEAN CORPUSCULAR VOLUME 94.7 fL (80-100); MEAN PLATELET VOLUME 8.3 fL (7.4-10.4); MONOCYTES # (AUTO) 0.76 x10^3/uL (0.2-0.8); MONOCYTES % (AUTO) 8 % (2-9); NEUTROPHILS # (AUTO) 7.27 x10^3/uL (1.8-6.8); NEUTROPHILS % (AUTO) 78 % (42-75); PLATELET COUNT 276 x10^3/uL (130-400); RED BLOOD COUNT 3.49 x10^6/uL (3.82-5.3); RED CELL DISTRIBUTION WIDTH 14.2 % (9.6-15.2)
[2018-05-18] MEDS: AMPICILLIN/SULBACTAM 3 GM in SODIUM CHLORIDE 0.9% 100 ML IV SCH (05:34)
[2018-05-18] MEDS: ALBUTEROL SULFATE 2.5 MG/3 ML NPPB SCH ×2 (06:52→10:58)
[2018-05-18 08:00] VITALS: BP 138/76
[2018-05-18] MEDS: DIGOXIN 0.25 MG TABLET PO SCH (08:35)
[2018-05-18] MEDS ORDERED: DIGO250T PO (08:52)
[2018-05-18] MEDS ORDERED: METO50TA82 PO (08:52)
[2018-05-18] MEDS ORDERED: AMOX1TAB64 PO (08:52)
== END 2018-05-18 13:26 | DRG 208 ==
LOC: ED 19:34 → SUATTDRO 19:39 → EDIP 19:45 → CCU 20:32 → 4NOR 05-12 15:26 → 5SO 05-15 14:18
PROVIDERS: ADMIT Hospitalist; ATTEND Hospitalist
PROC: 5A1945Z Respiratory Ventilation, 24-96 Consecutive Hours (ICD-10-PCS; principal; 2018-05-06)
PROC: 0W9930Z Drainage of Right Pleural Cavity with Drainage Device, Percutaneous Approach (ICD-10-PCS; 2018-05-06)
PROC: 0BH17EZ Insertion of Endotracheal Airway into Trachea, Via Natural or Artificial Opening (ICD-10-PCS; 2018-05-06)
PROC: 0T9B70Z Drainage of Bladder with Drainage Device, Via Natural or Artificial Opening (ICD-10-PCS; 2018-05-06)
DX: J96.01 Acute respiratory failure with hypoxia (principal); K72.00 Acute and subacute hepatic failure without coma; E43 Unspecified severe protein-calorie malnutrition; J93.0 Spontaneous tension pneumothorax; G93.40 Encephalopathy, unspecified; I21.4 Non-ST elevation (NSTEMI) myocardial infarction; J69.0 Pneumonitis due to inhalation of food and vomit; N17.0 Acute kidney failure with tubular necrosis; E87.2 Acidosis; D68.69 Other thrombophilia; I48.1 Persistent atrial fibrillation; J98.11 Atelectasis; N17.9 Acute kidney failure, unspecified; J93.83 Other pneumothorax; Z99.11 Dependence on respirator [ventilator] status; E78.5 Hyperlipidemia, unspecified; D69.6 Thrombocytopenia, unspecified; E86.0 Dehydration; E87.5 Hyperkalemia; I07.1 Rheumatic tricuspid insufficiency; I10 Essential (primary) hypertension; I27.20 Pulmonary hypertension, unspecified; I34.0 Nonrheumatic mitral (valve) insufficiency; I35.8 Other nonrheumatic aortic valve disorders; I48.2 Chronic atrial fibrillation; K75.89 Other specified inflammatory liver diseases; Z79.01 Long term (current) use of anticoagulants; Z85.3 Personal history of malignant neoplasm of breast; Z90.11 Acquired absence of right breast and nipple; Z68.34 Body mass index [BMI] 34.0-34.9, adult; Z68.32 Body mass index [BMI] 32.0-32.9, adult; Z88.6 Allergy status to analgesic agent
CPT/HCPCS: 31500; 32551; 36415; 36600; 51702; 71045; 71046; 74230; 80048; 80053; 81001; 82803; 83605; 83735; 84100; 84478; 84484; 85025; 85049; 85379; 85384; 85610; 85730; 86022; 87040; 87070; 87081; 87086; 87205; 87324; 93005; 93306; 94002; 94003; 94640; 96365; 96375; 99291; J0295; J1940; J2250; J2405; J2543; J2704; J3010; J7613; J7620; P9047; C9113; J0330; J1160; J2270; J7030; J7040; Q0163; S0074

== ENCOUNTER → 2018-08-01 | Outpatient (CLI) | payer MEDICARE ==
[~2018-08-01] MED LIST changes: +AMOX1TAB64 PO; +ANAS1TAB PO; +CEPH-376 PO; +DIGO250T PO; -ETOMIDATE 40 MG/20 ML ONE; +HYDR-3653 PO; -LOSA25TA5 PO; +LOSA25TA6 PO; +METO-99 PO; +METO50TA82 PO; -MIDAZOLAM 1 MG/ML, 5ML ONE; +ONDA4TAB12 PO; -PROPOFOL 10 MG/ML, 100ML IV ONE; -PROPOFOL 10 MG/ML, 20ML ONE; -SUCCINYLCHOLINE 20 MG/ML, 10ML ONE
== END | disposition home or self-care (01) ==
LOC: STAR 10:07
PROVIDERS: ATTEND Surgery Plastic and Reconstructive Surgery
DX: Z01.818 Encounter for other preprocedural examination (principal); N65.1 Disproportion of reconstructed breast; I25.2 Old myocardial infarction; I48.91 Unspecified atrial fibrillation; Z85.3 Personal history of malignant neoplasm of breast
CPT/HCPCS: 93005

== ENCOUNTER 2018-08-09 13:52 | Day surgery (SDC) | payer MEDICARE ==
[~2018-08-09] VITALS: Ht 172.7 cm; Wt 77.4 kg
[2018-08-09] MEDS ORDERED: FENTANYL PF 250 MCG/5ML ONE (13:54)
[2018-08-09] MEDS ORDERED: MIDAZOLAM 1 MG/ML, 2ML ONE (13:54)
[2018-08-09] MEDS ORDERED: BACITRACIN 50,000 UNIT ONE (14:55)
[2018-08-09] MEDS ORDERED: CEFAZOLIN 1,000 MG ONE (14:55)
[2018-08-09] MEDS ORDERED: GENTAMICIN 80 MG/2 ML ONE (14:55)
[2018-08-09] MEDS ORDERED: GABAPENTIN 300 MG CAPSULE ONE (14:57)
[2018-08-09] MEDS ORDERED: ACETAMINOPHEN 500 MG TABLET ONE (14:57)
[2018-08-09 14:59] VITALS: BP 126/85
[2018-08-09] MEDS ORDERED: DEXAMETHASONE 4 MG/ML, 1ML ONE (15:21)
[2018-08-09] MEDS ORDERED: ROCURONIUM 10 MG/ML,10ML ONE (15:21)
[2018-08-09] MEDS ORDERED: ONDANSETRON 2MG/ML, 2ML ONE (15:21)
[2018-08-09] MEDS ORDERED: PROPOFOL 10 MG/ML, 20ML ONE (15:21)
[2018-08-09] MEDS ORDERED: LIDOCAINE 1%-EPI 1:100K, 30ML ONE (15:32)
[2018-08-09] MEDS ORDERED: LIDOCAINE 1%-EPI 1:100K, 30ML INFIL ONE (15:45)
[2018-08-09] MEDS ORDERED: HALOPERIDOL 5 MG/ML IV PRN (16:30)
[2018-08-09] MEDS ORDERED: FENTANYL PF 100 MCG/2ML IV PRN (16:30)
[2018-08-09] MEDS ORDERED: HYDROmorphone 1 MG/ML, 1ML IV PRN (16:30)
[2018-08-09] MEDS ORDERED: hydrALAzine 20 MG/ML, 1ML IV PRN (16:30)
[2018-08-09] MEDS ORDERED: PROMETHAZINE 25 MG/ML, 1ML IV PRN (16:30)
[2018-08-09] MEDS ORDERED: LABETALOL 5MG/ML, 20ML IV PRN (16:30)
[2018-08-09] MEDS ORDERED: DILTIAZEM 5 MG/ML, 10ML ONE (16:57)
[2018-08-09] MEDS ORDERED: OXYcodone 5 MG/5 ML ORAL.SOL UDC ONE (17:50)
[2018-08-09] MEDS ORDERED: FENTANYL PF 100 MCG/2ML ONE (17:50)
[2018-08-09 19:19] VITALS: BP 117/81
[2018-08-09] MEDS ORDERED: LACTATED RINGERS 1,000 ML IV SCH (19:30)
[2018-08-09] MEDS ORDERED: PRAVASTATIN 20 MG TABLET PO SCH (21:00)
[2018-08-10] MEDS ORDERED: METOPROLOL TARTRATE 100 MG TABLET PO SCH (06:00)
[2018-08-10] MEDS ORDERED: LOSARTAN 50MG TABLET PO SCH (09:00)
[2018-08-10] MEDS ORDERED: ANASTROZOLE 1 MG TABLET PO SCH (09:00)
[2018-08-10] MEDS ORDERED: HYDROCHLOROTHIAZIDE 25 MG TABLET PO SCH (09:00)
[2018-08-10] MEDS ORDERED: RIVAROXABAN 20 MG TABLET PO SCH (21:00)
== END 2018-08-09 21:20 | disposition home or self-care (01) ==
LOC: OR 13:52 → 4NOR 19:05 → OR 21:20
PROVIDERS: ATTEND Surgery Plastic and Reconstructive Surgery
DX: N65.1 Disproportion of reconstructed breast (principal); I10 Essential (primary) hypertension; G47.33 Obstructive sleep apnea (adult) (pediatric); I48.91 Unspecified atrial fibrillation; E78.5 Hyperlipidemia, unspecified; Z88.8 Allergy status to other drugs, medicaments and biological substances; Z85.3 Personal history of malignant neoplasm of breast
CPT/HCPCS: 11970; 19316; C1789; J0690; J1100; J1580; J2250; J2405; J2704; J3010; J3490; G0378

== ENCOUNTER → 2019-02-01 | Outpatient (CLI) | payer MEDICARE ==
[~2019-02-01] MED LIST changes: +LOSA25TA25 PO; -LOSA25TA6 PO
[2019-02-01 15:19] LABS: ALANINE AMINOTRANSFERASE 29 U/L (12-78); ALBUMIN 3.8 g/dL (3.4-5.0); ANION GAP 5 mmol/L (5-15); CALCIUM 9.6 mg/dL (8.5-10.1); CHLORIDE 107 mmol/L (98-107); CREATININE 1.17 mg/dL (0.55-1.02)
[2019-02-01 15:21] LABS: ALKALINE PHOSPHATASE 61 U/L (45-117); BILIRUBIN,TOTAL 0.7 mg/dL (0.2-1.0); TOTAL PROTEIN 7.2 g/dL (6.4-8.2)
== END | disposition home or self-care (01) ==
LOC: STAR 14:00
PROVIDERS: ATTEND Surgery Plastic and Reconstructive Surgery
DX: Z01.818 Encounter for other preprocedural examination (principal); R94.31 Abnormal electrocardiogram [ECG] [EKG]; Z98.82 Breast implant status; Z85.3 Personal history of malignant neoplasm of breast
CPT/HCPCS: 36415; 80053; 93005

== ENCOUNTER 2019-02-08 08:09 | Day surgery (SDC) | payer MEDICARE ==
[~2019-02-08] VITALS: Ht 167.6 cm; Wt 79.3 kg
[~2019-02-08 08:09] MED LIST changes: +FENTANYL PF 250 MCG/5ML ONE
[2019-02-08 09:01] VITALS: BP 124/87
[2019-02-08] MEDS ORDERED: CEFAZOLIN 1,000 MG ONE ×2 (09:16→11:45)
[2019-02-08] MEDS ORDERED: LIDOCAINE-MPF 2% ,5ML ONE (09:17)
[2019-02-08] MEDS ORDERED: EPINEPHRINE 1 MG/ML, 1ML ONE (09:17)
[2019-02-08] MEDS ORDERED: SODIUM BICARBONATE 1 MEQ/ML, 50ML VIAL ONE (09:17)
[2019-02-08] MEDS ORDERED: BACITRACIN 50,000 UNIT ONE (09:17)
[2019-02-08] MEDS ORDERED: GENTAMICIN 80 MG/2 ML ONE (09:27)
[2019-02-08] MEDS ORDERED: SODIUM CHLORIDE 0.9%, 50ML ONE (09:27)
[2019-02-08] MEDS ORDERED: SUGAMMADEX 200 MG/2 ML IVPush ONE ×2 (10:04→10:14)
[2019-02-08] MEDS ORDERED: PHENYLEPHRINE 10 MG/ML ONE (10:04)
[2019-02-08] MEDS ORDERED: LIDOCAINE 1%-EPI 1:100K, 20ML ONE (10:14)
[2019-02-08] MEDS ORDERED: LABETALOL 5MG/ML, 20ML IV PRN (10:30)
[2019-02-08] MEDS ORDERED: PROMETHAZINE 25 MG/ML, 1ML IV PRN (10:30)
[2019-02-08] MEDS ORDERED: ONDANSETRON ODT 8 MG PO PRN (10:30)
[2019-02-08] MEDS ORDERED: hydrALAzine 20 MG/ML, 1ML IV PRN (10:30)
[2019-02-08] MEDS ORDERED: ONDANSETRON 2MG/ML, 2ML IV PRN (10:30)
[2019-02-08] MEDS ORDERED: HYDROmorphone 2 MG/ML, 1ML IVPush PRN (10:30)
[2019-02-08] MEDS ORDERED: DIAZEPAM 5 MG/ML, 2ML IVPush PRN (10:30)
[2019-02-08] MEDS ORDERED: FENTANYL PF 100 MCG/2ML IV PRN (10:30)
[2019-02-08] MEDS ORDERED: ACETAMINOPHEN 325 MG TABLET PO PRN (10:30)
[2019-02-08] MEDS ORDERED: ROCURONIUM 10MG/ML,5ML ONE (11:45)
[2019-02-08] MEDS ORDERED: NEOSTIGMINE 1 MG/ML, 10ML ONE (11:45)
[2019-02-08] MEDS ORDERED: GLYCOPYRROLATE 0.2MG/1ML, 5ML ONE (11:45)
[2019-02-08] MEDS ORDERED: ONDANSETRON 2MG/ML, 2ML ONE (11:45)
[2019-02-08] MEDS ORDERED: SUCCINYLCHOLINE 20 MG/ML, 10ML ONE (11:45)
[2019-02-08] MEDS ORDERED: DEXAMETHASONE 4 MG/ML, 1ML ONE (11:45)
[2019-02-08] MEDS ORDERED: PROPOFOL 10 MG/ML, 20ML ONE (11:45)
== END 2019-02-08 14:00 | disposition home or self-care (01) ==
LOC: OUT 08:09
PROVIDERS: ATTEND Surgery Plastic and Reconstructive Surgery
DX: T85.49XA Other mechanical complication of breast prosthesis and implant, initial encounter (principal); N65.1 Disproportion of reconstructed breast; I10 Essential (primary) hypertension; G47.33 Obstructive sleep apnea (adult) (pediatric); Z85.3 Personal history of malignant neoplasm of breast; Z98.890 Other specified postprocedural states; Z88.8 Allergy status to other drugs, medicaments and biological substances; Y83.8 Other surgical procedures as the cause of abnormal reaction of the patient, or of later complication, without mention of misadventure at the time of the procedure; Y92.89 Other specified places as the place of occurrence of the external cause
CPT/HCPCS: 19316; 19328; 19342; C1789; J0171; J0330; J0690; J1100; J1580; J2370; J2405; J2704; J2710; J3010; J3490

== ENCOUNTER 2019-04-12 11:31 | Outpatient (CLI) | payer MEDICARE ==
[~2019-04-12 11:31] MED LIST changes: -FENTANYL PF 250 MCG/5ML ONE
== END 2019-04-12 23:59 | disposition home or self-care (01) ==
LOC: CFH 11:31
PROVIDERS: ATTEND Internal Medicine Hematology & Oncology
DX: Z02.9 Encounter for administrative examinations, unspecified (principal)

== ENCOUNTER 2019-05-27 09:57 | Outpatient (CLI) | payer MEDICARE | END 2019-05-27 23:59 | disposition home or self-care (01) | LOC: CFH 09:57 | PROVIDERS: ATTEND Internal Medicine Hematology & Oncology | DX: Z12.31 Encounter for screening mammogram for malignant neoplasm of breast (principal) | CPT/HCPCS: 77067 ==

== ENCOUNTER → 2020-09-21 | Outpatient (CLI) | payer MEDICARE ==
[~2020-09-21] MED LIST changes: -DIGO250T PO; +DIGO250T3 PO; +ONDA-89 PO; -ONDA4TAB12 PO
== END | disposition home or self-care (01) ==
LOC: CFH 10:23
PROVIDERS: ATTEND Internal Medicine Hematology & Oncology
DX: C50.411 Malignant neoplasm of upper-outer quadrant of right female breast (principal); M85.88 Other specified disorders of bone density and structure, other site
CPT/HCPCS: 77080

== ENCOUNTER → 2021-01-06 | Outpatient (CLI) | payer MEDICARE | END | disposition home or self-care (01) | LOC: CFH 13:31 | PROVIDERS: ATTEND Internal Medicine Cardiovascular Disease | DX: I08.3 Combined rheumatic disorders of mitral, aortic and tricuspid valves (principal); I48.91 Unspecified atrial fibrillation; E78.5 Hyperlipidemia, unspecified; I11.9 Hypertensive heart disease without heart failure; Z85.3 Personal history of malignant neoplasm of breast; Z79.01 Long term (current) use of anticoagulants | CPT/HCPCS: 93306 ==